=== PATIENT | female | born 1960 | race Caucasian/White ===

== ENCOUNTER 2016-11-21 07:50 | Day surgery (SDC) | payer BC ==
--- NOTE | ~2016-11-21 | EGD ---
EGD REPORT [facility] [address] [place] [address] NAME: AISHWARYA KOEHLER : 56 STATUS : REG [facility]#: [id number] AGE: 56 ADM/REG DATE : 11/21/16 MR#: [id number] REPORT SERV DATE: 11/21/16 DICTATED BY: KELLI MATHUR DATE: 11/21/16 REPORT STATUS : Draft TRANSCRIBED BY: [facility] DATE: 11/21/16 [facility] Patient Name: Aishwarya Koehler Date of : 1960 Attending MD: KELLI MATHUR MD Procedure Date No Time: 11/21/2016 Procedure: Colonoscopy Indications: Screening for colorectal malignant neoplasm Referring MD: EUSEBIO VIZCARRA Medicines: as per anesthesia Complications: No immediate complications. Procedure: Pre-Anesthesia Assessment: - ASA Grade Assessment: II - A patient with mild systemic disease. After I obtained informed consent, the scope was passed under direct vision. Throughout the procedure, the patient's blood pressure, pulse, and oxygen saturations were monitored continuously. The PCF [id number] was introduced through the anus and advanced to the cecum, identified by appendiceal orifice and ileocecal valve. The colonoscopy was somewhat difficult due to a tortuous colon. The patient tolerated the procedure. The quality of the bowel preparation was adequate to identify polyps. Findings: The perianal and digital rectal examinations were normal. A sessile polyp was found in the distal sigmoid colon. The polyp was 3 mm in size. The polyp was removed with a cold biopsy forceps. Resection and retrieval were complete. Impression: - One 3 mm polyp in the distal sigmoid colon. Resected and retrieved. Recommendation: - Await pathology results. - Repeat colonoscopy for surveillance based on pathology results. Procedure Code(s): --- Professional --- 03808, Colonoscopy, flexible, proximal to splenic flexure; with biopsy, single or multiple Diagnosis Code(s): --- Professional --- D12.5, Benign neoplasm of sigmoid colon Z12.11, Encounter for screening for malignant neoplasm of colon EGD REPORT [facility] [address] [address] NAME: AISHWARYA KOEHLER : 56 STATUS : REG [facility] PAT#: [id number] AGE: 56 ADM/REG DATE : 11/21/16 MR#: [id number] REPORT SERV DATE: 11/21/16 DICTATED BY: KELLI MATHUR. DATE: 11/21/16 REPORT STATUS : Draft TRANSCRIBED BY: [employer] DATE: 11/21/16 CPT copyright 2013 [employer]. All rights reserved. The codes documented in this report are preliminary and upon certified composites technician review may be revised to meet current compliance requirements. KELLI MATHUR MD 11/21/2016 10:55 AM This report has been signed electronically. Number of Addenda: 0 Note Initiated On: 11/21/2016 10:07 AM Scope Withdrawal Time 0 hours 11 minutes 28 seconds [id number] [id number]
[~2016-11-21 07:50] MED LIST: CALTRA600D PO; CRESTOR5 MG PO; CYMBALTA60 PO; FISH-EPA1000 MG PO; KLONO5 PO; LORTAB10 PO; LYRICA150 MG PO; NEXIUM40 PO; OMEGA 3550 MG PO; VITAMIN D31000 UNIT PO; ZOL100 PO; ZOL50 PO
== END 2016-11-21 23:59 | disposition home or self-care (01) ==
LOC: DMU 07:50
PROVIDERS: Internal Medicine Gastroenterology
PROC: 0DBN8ZX Excision of Sigmoid Colon, Via Natural or Artificial Opening Endoscopic, Diagnostic (ICD-10-PCS; principal; 2016-11-21 09:00)
DX: Z12.11 Encounter for screening for malignant neoplasm of colon (principal); D12.5 Benign neoplasm of sigmoid colon; E78.00 Pure hypercholesterolemia, unspecified; F32.9 Major depressive disorder, single episode, unspecified; F17.210 Nicotine dependence, cigarettes, uncomplicated; Z88.2 Allergy status to sulfonamides; Z79.899 Other long term (current) drug therapy
CPT/HCPCS: 88305; J2405